=== PATIENT | male | born 2000 | race Caucasian/White ===

== ENCOUNTER → 2020-09-02 | Outpatient (CLI) | payer OTHER ==
[~2020-09-02] MED LIST: CETI-17 PO; CLON-276 PO; FLUO10CA15 PO; MONT10TA80 PO; RISP1SOL6 PO
--- NOTE | 2020-09-02 17:57 | RAD ---
Site ID: [id number] EXAMINATION: XR RIBS MIN 3 VIEWS RT W/PA CHEST. HISTORY: 19 years Male Reason: RIGHT RIB PAIN AFTER FALLING 2 WEEKS AGO / Spl. Instructions: / His tory: . . COMPARISON: None. Findings: The lungs are clear. The heart size is normal. There is no effusion or pneumothorax. The mediastinum and sheela appear unremarkable. The right rib views demonstrate no fracture Impression: Unremarkable chest and right rib views. Electronically signed by: Deshawn Quene MD (09/02/2020 5:54 PM) [id number]
== END ==
LOC: RAD 17:02
DX: R07.81 Pleurodynia (principal)
CPT/HCPCS: 71101